=== PATIENT | male | born 1965 | race African-American/Black ===

== ENCOUNTER 2020-04-04 16:27 | Emergency (ER) | payer OTHER ==
[~2020-04-04] VITALS: Ht 172.7 cm; Wt 140.0 kg
--- NOTE | 2020-04-04 17:37 | PHYS DOC ---
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 He just got out of [employer] last month on February 28. Past medical history he says he has a history of diabetes the given metformin but is not sure about that diagnosis so he did not take it. Current medications none allergies none social history denies any concerning risks. Review of systems otherwise negative except as noted in the HPI (LENNY FERRELL MD) Review of Systems: Review of Systems: Constitutional: Denies fever or chills Eyes: Denies change in visual acuity HENT: Denies nasal congestion or sore throat Respiratory: Denies cough or shortness of breath Cardiovascular: Denies chest pain or edema GI: Denies abdominal pain, nausea, vomiting, bloody stools or diarrhea Lymphatic: Denies swollen glands Psychiatric: Denies depression or anxiety (LENNY FERRELL MD) Heart Score: Risk Factors: Risk Factors: DM, Current or recent (<one month) smoker, HTN, HLP, family history of CAD, obesity. Risk Scores: Score 0 - 3: 2.5% MACE over next 6 weeks - Discharge Home Score 4 - 6: 20.3% MACE over next 6 weeks - Admit for Clinical Observation Score 7 - 10: 72.7% MACE over next 6 weeks - Early Invasive Strategies (LENNY FERRELL MD) Allergies: Allergies: Allergies Coded Allergies Type Severity Reaction Last Updated Verified No Known Drug Allergies 04/04/20 No (LENNY FERRELL MD) Physical Exam: PE: Constitutional: Well developed, well nourished, no acute distress, non-toxic appearance. [] HENT: Normocephalic, atraumatic, bilateral external ears normal, oropharynx moist, no oral exudates, nose normal. [] Eyes: PERRLA, EOMI, conjunctiva normal, no discharge. [] Neck: Normal range of motion, no tenderness, supple, no stridor. [] Pulmonary: Normal respiratory effort no increased work of breathing no obvious chest wall trauma Abdomen: Bowel sounds normal, soft, no tenderness, no masses, no pulsatile masses. [] Skin: Warm, dry, no erythema, no rash. [] Back: No tenderness, no CVA tenderness. [] Extremities: There is erythema noted to the right lower extremity significant swelling edema noted mild to moderate tenderness pedal pulses intact. Mild edema to the left lower extremity Neurologic: Alert and oriented X 3, normal motor function, normal sensory function, no focal deficits noted. [] Psychologic: Affect normal, judgement normal, mood normal. [] (LENNY FERRELL MD) PE: Constitutional: Well developed, well nourished, no acute distress HENT: Normocephalic, atraumatic Lungs & Thorax: No respiratory distress, equal chest rise and fall Skin: Warm, dry, moderate erythema Extremities: Mild tenderness to right pretibial area at site of erythema, DP and PT on right +2, exfoliative dermatitis noted to bilateral feet and in between toes Neurologic: Alert and oriented X 3, no focal deficits noted Psychologic: Affect normal, judgment normal (JULITA HART DO) Current Patient Data: Vital Signs: Vital Signs Date Time Temp Pulse Resp B/P (MAP) Pulse Ox O2 Delivery O2 Flow Rate FiO2 04/04/20 16:40 98.4 75 16 160/101 (120) 96 Room Air (LENNY FERRELL MD) EKG: EKG: [] (LENNY FERRELL MD) Radiology/Procedures: Radiology/Procedures: [] (LENNY FERRELL MD) Radiology/Procedures: PROCEDURE: VENOUS LOWER EXT BILATERAL Right Leg Venous Doppler Ultrasound, 04/04/2020 Indication: Right leg swelling Comparison: None available Procedure: Real-time grayscale, color flow color duplex Doppler and spectral analysis are obtained with and without compression in the area of the common femoral vein, superficial femoral vein - femoral vein junction, main femoral vein (superficial femoral vein) and popliteal vein. Veins of the proximal calf are also imaged. Findings: There is normal duplex flow, color flow and compressibility of all visualized vein segments. No evidence of deep venous thrombus is present. Note is made of mildly prominent bilateral groin lymph nodes. Impression: Negative venous Doppler of right lower extremity Electronically signed by: Delilah Zepeda MD (04/04/2020 7:27 PM) [facility] (JLUITA HART DO) Course & Med Decision Making: Course & Med Decision Making Pertinent Labs and Imaging studies reviewed. (See chart for details) 54-year-old male with a history of probable diabetes recently incarcerated presenting with right lower extremity swelling and redness probably cellulitis but I think given his history of obesity and significant swelling it warrants an ultrasound and further lab work. Care will be signed over to Dr. Hart pending completion of the work-up. (LENNY FERRELL MD) Course & Med Decision Making 1800- Sign out given to Dr. Ferrell for patient with RLE edema and erythema. Labs reviewed. Venous doppler pending. Venous doppler negative. Patient seen and evaluated in the Emergency Department. Empiric antibiotic provided. Advised patient he would also benefit from over the counter Tinactin athelete's foot spray. Patient stable for discharge with outpatient follow-up with PCP. Discussed findings and plan with patient, who acknowledges understanding and agreement. (JULITA HART DO) Dragon Disclaimer: Dragon Disclaimer: This electronic medical record was generated, in whole or in part, using a voice recognition dictation system. (LENNY FERRELL MD) Departure Departure: Impression: Primary Impression: Cellulitis Qualified Codes: L03.115 - Cellulitis of right lower limb Additional Impression: Athletes foot Qualified Codes: B35.3 - Tinea pedis Disposition: HOME/RESIDENCE PRIOR TO ADM Condition: STABLE Referrals: PCP,SAM (PCP) EDENILSON ARROYO MD Patient Instructions: Athlete's Foot, [id number], Cellulitis, [id number] Additional Instructions: Use over the counter Tylenol and/or Ibuprofen for pain or discomfort. Elevated limb for next few days. May benefit from Tinactin over the counter (for athelete's feet). Scripts Clindamycin Hcl (CLINDAMYCIN HCL) 300 Mg Capsule 1 CAP PO TID for infection, #30 CAP Prov: JULITA HART DO 04/04/20 Justification of Admission: Justification of Admission: Justification of Admission Dx: N/A (JULITA HART DO) LENNY FERRELL MD Apr 04, 2020 17:37 JULITA HART DO Apr 04, 2020 19:24
[2020-04-04 18:04] LABS: BASO % 1 % (0-3); EOS # 0.2 x10^3/uL (0.0-0.7); EOS % 4 % (0-3); HEMATOCRIT 40.9 % (39.0-53.0); HEMOGLOBIN 13.2 g/dL (13.0-17.5); LYMPH % 25 % (24-48); MEAN CORPUSCULAR HEMOGLOBIN 27 pg (25-35); MEAN CORPUSCULAR HGB CONC 32 g/dL (31-37); MEAN CORPUSCULAR VOLUME 83 fL (79-100); MONO # 0.5 x10^3/uL (0.0-1.1); MONO % 11 % (0-9); NEUT # 2.4 x10^3uL (1.8-7.7); NEUT % 59 % (31-73); PLATELET COUNT 263 x10^3/uL (140-400); RED BLOOD COUNT 4.91 x10^6/uL (4.30-5.70); RED CELL DISTRIBUTION WIDTH 14.9 % (11.5-14.5); WHITE BLOOD COUNT 4.1 x10^3/uL (4.0-11.0)
[2020-04-04 18:13] LABS: CALCIUM 8.3 mg/dL (8.5-10.1); CREATININE 1.2 mg/dL (0.7-1.3); GFR 76.9; POTASSIUM 3.9 mmol/L (3.5-5.1)
[2020-04-04 18:19] LABS: ALBUMIN 3.3 g/dL (3.4-5.0); ALBUMIN/GLOBULIN RATIO 0.7 (1.0-1.7); TOTAL BILIRUBIN 0.6 mg/dL (0.2-1.0); TOTAL PROTEIN 7.9 g/dL (6.4-8.2)
[2020-04-04 19:01] VITALS: BP 136/74
[2020-04-04] MEDS ORDERED: CLIN300C8 PO (19:24)
[2020-04-04] MEDS ORDERED: CLINDAMYCIN HCL 150 MG CAPSULE PO ONE (19:30)
--- NOTE | 2020-04-04 19:30 | RAD ---
Right Leg Venous Doppler Ultrasound, 04/04/2020 Indication: Right leg swelling Comparison: None available Procedure: Real-time grayscale, color flow color duplex Doppler and spectral analysis are obtained with and without compression in the area of the common femoral vein, superficial femoral vein - femoral vein junction, main femoral vein (superficial femoral vein) and popliteal vein. Veins of the proximal calf are also imaged. Findings: There is normal duplex flow, color flow and compressibility of all visualized vein segments. No evidence of deep venous thrombus is present. Note is made of mildly prominent bilateral groin lymph nodes. Impression: Negative venous Doppler of right lower extremity Electronically signed by: Delilah Zepeda MD (04/04/2020 7:27 PM) [facility]
== END 2020-04-04 19:33 | disposition home or self-care (01) ==
LOC: ER 16:27
DX: L03.115 Cellulitis of right lower limb (principal); B35.3 Tinea pedis; L53.9 Erythematous condition, unspecified; E11.9 Type 2 diabetes mellitus without complications; Z98.890 Other specified postprocedural states
CPT/HCPCS: 36415; 80053; 85025; 93970; 99284

== ENCOUNTER → 2020-12-14 | Outpatient (CLI) | payer BC ==
[~2020-12-14] MED LIST: CLIN300C9 PO
== END ==
LOC: LAB 10:00
PROVIDERS: ATTEND Nurse Anesthetist, Certified Registered
DX: Z01.812 Encounter for preprocedural laboratory examination (principal); L29.0 Pruritus ani; Z20.822 Contact with and (suspected) exposure to COVID-19
CPT/HCPCS: U0003

== ENCOUNTER → 2020-12-18 | Day surgery (SDC) | payer BC ==
[~2020-12-18] MED LIST changes: +IPRATRPIUM/ALBUTEROL 0.5/2.5MG 3 ML NEBU. NEB PRN; +IV RINGERS SOLUTION,LACTATED 1,000 ML IV SCH; +LIDOCAINE 2% PF 5 ML VIAL. ONE; +MIDAZOLAM HCL PF 2 MG/2 ML VIAL. IV ONE; +ONDANSETRON PF 4 MG/2 ML VIAL. IV PRN; +PROPOFOL 10,000 MCG/ML (20ML) VIAL IV ONE
[2020-12-18 09:21] VITALS: BP 133/83
== END | disposition home or self-care (01) ==
LOC: SURG 07:21
PROVIDERS: ATTEND Emergency Medicine
DX: Z12.11 Encounter for screening for malignant neoplasm of colon (principal); K63.5 Polyp of colon; E11.9 Type 2 diabetes mellitus without complications; Z79.899 Other long term (current) drug therapy; Z98.890 Other specified postprocedural states
CPT/HCPCS: 45380; 88305; J2001; J2704; J7120

== ENCOUNTER 2021-12-18 07:15 | Emergency (ER) | payer SELFPAY ==
[~2021-12-18] VITALS: Ht 172.7 cm; Wt 140.0 kg
[~2021-12-18 07:15] MED LIST changes: +CLIN-95 PO; -CLIN300C9 PO; -IPRATRPIUM/ALBUTEROL 0.5/2.5MG 3 ML NEBU. NEB PRN; -IV RINGERS SOLUTION,LACTATED 1,000 ML IV SCH; -LIDOCAINE 2% PF 5 ML VIAL. ONE; -MIDAZOLAM HCL PF 2 MG/2 ML VIAL. IV ONE; -ONDANSETRON PF 4 MG/2 ML VIAL. IV PRN; -PROPOFOL 10,000 MCG/ML (20ML) VIAL IV ONE
[2021-12-18 07:21] VITALS: BP 139/70
[2021-12-18] MEDS ORDERED: HYDR25SU18 RC (07:48)
[2021-12-18] MEDS ORDERED: SENN-121 PO (07:48)
--- NOTE | 2021-12-18 07:48 | PHYS DOC ---
Past History Past Medical History: Diabetes, Prostatitis Past Surgical History: Other Additional Past Surgical Histo: hernia's Alcohol Use: None General Adult EDM: Chief Complaint: ITCHING HPI: HPI: Patient is a 56 year old man that presents to ED for worsening anal pruritus for the last 4-5 months. This morning his symptoms reached an intolerable level prompting his visit to the ED. He reports some burning after bowel movements. His stools are darker than usual, but denies bright red blood per rectum. Endorses history of constipation. He hasn't tried any over the counter medicatio ns for symptom relief. Of note, he reports that he had a colonoscopy [address] Barnes[address] Per the patient, the operative report mentioned hemorrhoids and malignant polyps with a recommendation to follow up with yearly colonoscopies. His insurance has lapsed, and he hasn't followed up for a colonoscopy at this time. Not taking any medication. Denies tobacco, alcohol, and recreational drug use. Review of Systems: Review of Systems: Constitutional: Denies fever or chills HENT: Denies nasal congestion or sore throat Respiratory: Denies cough or shortness of breath Cardiovascular: Denies chest pain or palpitations GI: Denies abdominal pain, nausea, or vomiting. Reports burning after bowel movement : Denies dysuria or hematuria Musculoskeletal: Denies back pain or joint pain Integument: Denies rash or skin lesions Neurologic: Denies headache, focal weakness or sensory changes Complete systems were reviewed and found to be within normal limits, except as documented in this note. Allergies: Allergies: Allergies Coded Allergies Type Severity Reaction Last Updated Verified No Known Drug Allergies 12/18/20 No Physical Exam: PE: Constitutional: Well developed, well nourished, no acute distress, non-toxic appearance. [] HENT: Normocephalic, atraumatic, Eyes: conjunctiva normal, no discharge. [] Neck: Normal range of motion, supple Cardiovascular:Heart rate regular rhythm, no murmur [] Lungs & Thorax: Bilateral breath sounds clear to auscultation [] Abdomen: soft, no tenderness, no masses, no pulsatile masses. Anus: toilet paper around rectum, brown stool. small hemorrhoid noted at the 8:00 position, [] Skin: Warm, dry, no erythema, no rash. [] Extremities: No tenderness, no cyanosis, no clubbing, ROM intact, 1+ pitting edema Neurologic: Alert and oriented X 3, normal motor function, normal sensory function, no focal deficits noted. [] Psychologic: Affect normal, judgement normal, mood normal. [] Current Patient Data: Vital Signs: Vital Signs Date Time Temp Pulse Resp B/P (MAP) Pulse Ox O2 Delivery O2 Flow Rate FiO2 12/18/21 07:21 97.9 3 139/70 (93) 97 Room Air EKG: EKG: [] Radiology/Procedures: Radiology/Procedures: [] Heart Score: C/O Chest Pain: N/A Risk Factors: Risk Factors: DM, Current or recent (<one month) smoker, HTN, HLP, family history of CAD, obesity. Risk Scores: Score 0 - 3: 2.5% MACE over next 6 weeks - Discharge Home Score 4 - 6: 20.3% MACE over next 6 weeks - Admit for Clinical Observation Score 7 - 10: 72.7% MACE over next 6 weeks - Early Invasive Strategies Course & Med Decision Making: Course & Med Decision Making 56 yo male presented for worsening anal pruritus over the last few months. Denies bright red blood per rectum. Vitals stable. Given history of constipation and physical exam findings consistent with hemorrhoid, patient was provided with prescription for suppositories and stool softener. Recommended that the patient follow up with his provider for another colonoscopy. Didier Disclaimer: Didier Disclaimer: This electronic medical record was generated, in whole or in part, using a voice recognition dictation system. Departure Departure: Impression: Primary Impression: Anal pruritus Additional Impression: Hemorrhoids Qualified Codes: K64.9 - Unspecified hemorrhoids Disposition: HOME / SELF CARE / HOMELESS Condition: STABLE Referrals: BELINDA ONEAL (PCP) ALLEN CHU DO Patient Instructions: Anal Pruritus, [id number], Hemorrhoids, [id number] Scripts Sennosides/Docusate Sodium (Colace 2-in-1 Tablet) 1 Each Tablet 1 TAB PO QHS for Constipation for 30 Days, #30 TAB 0 Refills Prov: JULITA HART DO 12/18/21 Hydrocortisone Acetate (ANUSOL-HC) 25 Mg Supp.rect 1 SUPP RC BID for Hemorrhoids for 7 Days, #14 SUPP 0 Refills Prov: JULITA HART DO 12/18/21 JULITA HART DO Dec 18, 2021 07:48
== END 2021-12-18 07:52 | disposition home or self-care (01) ==
LOC: ER 07:15
DX: K64.9 Unspecified hemorrhoids (principal); L29.0 Pruritus ani; E11.9 Type 2 diabetes mellitus without complications
CPT/HCPCS: 99283